=== PATIENT | female | born 1995 | race African-American/Black ===

== ENCOUNTER 2018-04-09 20:34 | Observation (INO) | payer MEDICAID ==
[~2018-04-09] VITALS: Ht 157.5 cm; Wt 55.3 kg
[2018-04-09] MEDS: LACTATED RINGERS 1,000 ML IV NR ×3 (22:02→23:50)
[2018-04-09 22:20] LABS: CLARITY URINE CLEAR (CLEAR); COLOR URINE YELLOW (YELLOW); KETONES URINE NEGATIVE (NEGATIVE); LEUKOCYTE ESTERASE URINE NEGATIVE (NEGATIVE); NITRITE URINE NEGATIVE (NEGATIVE); OCCULT BLOOD URINE NEGATIVE (NEGATIVE); PH URINE 6.5 (4.5-8.0); PROTEIN URINE NEGATIVE (NEGATIVE); SPECIFIC GRAVITY URINE 1.009 (1.005-1.030); UROBILINOGEN URINE 0.2 E.U./dL (0.2-1.0)
[2018-04-10] MEDS ORDERED: TERBUTALINE SULFATE 1MG/ML VIAL ONE (00:12)
[2018-04-10] MEDS ORDERED: TERBUTALINE SULFATE 1MG/ML VIAL SUBCUT PRN (00:30)
[2018-04-10] MEDS ORDERED: PREN1TAB33 MT (00:39)
== END 2018-04-10 00:51 | disposition home or self-care (01) ==
LOC: L&D 20:34
PROVIDERS: ADMIT Specialist; ATTEND Specialist
DX: O26.852 Spotting complicating pregnancy, second trimester (principal); O62.9 Abnormality of forces of labor, unspecified; O26.892 Other specified pregnancy related conditions, second trimester; R10.9 Unspecified abdominal pain; Z3A.22 22 weeks gestation of pregnancy
CPT/HCPCS: 81003; 96360; 96361; 96372; 99281; G0378; J3105; J7120